=== PATIENT | female | born 1965 | race Caucasian/White ===

== ENCOUNTER → 2017-03-02 | Outpatient (CLI) | payer BC ==
[2017-03-02 07:53] LABS: BASOPHILS # (AUTO) 0.05 10*3/UL; BASOPHILS % (AUTO) 0.7 % (0-1); EOSINOPHILS # (AUTO) 0.24 10*3/UL; EOSINOPHILS % (AUTO) 3.1 % (0-8); HEMATOCRIT 41.8 % (37.0-47.0); LYMPHOCYTES # (AUTO) 2.26 10*3/uL; MEAN CORPUSCULAR HEMOGLOBIN 29.2 PG (27-31); MEAN CORPUSCULAR HGB CONC 33.5 g/dL (33-37); MEAN CORPUSCULAR VOLUME 87.3 FL (81-99); MEAN PLATELET VOLUME 9.4 FL (7.4-12.2); MONOCYTES # (AUTO) 0.64 10*3/UL (0.3-0.8); MONOCYTES % (AUTO) 8.4 % (5-15); NEUTROPHILS # (AUTO) 4.44 10*3/UL; NEUTROPHILS % (AUTO) 57.9 % (50-80); RED BLOOD COUNT 4.79 10^6/uL (4.20-5.40)
[2017-03-02 07:54] LABS: PLATELET MORPHOLOGY COMMENT NORMAL MORPHOLOGY (NORM); RBC MORPHOLOGY COMMENT NORMAL MORPHOLOGY (NORM); WBC MORPHOLOGY COMMENT NORMAL MORPHOLOGY (NORM)
[2017-03-02 08:25] LABS: BLOOD UREA NITROGEN 14 mg/dL (7-22); BUN/CREATININE RATIO 23.33 (6-20); CALCIUM 9.6 mg/dL (8.7-10.7); EST GLOMERULAR FILTRATION > 60 (>60 ml/min/1.73m(2)); SERUM ALBUMIN 4.3 g/dL (3.5-4.8)
== END ==
LOC: LAB 07:33
PROVIDERS: ATTEND Internal Medicine Gastroenterology
DX: R94.5 Abnormal results of liver function studies (principal); K75.81 Nonalcoholic steatohepatitis (NASH)
CPT/HCPCS: 36415; 80053; 82105; 85025; 85610

== ENCOUNTER 2017-04-30 18:52 | Emergency (ER) | payer BC ==
[2017-04-30] MEDS ORDERED: DEXAMETHASONE PF 10 MG/1 ML VIAL IV ONE (19:01)
[2017-04-30] MEDS ORDERED: Famotidine Inj 20 MG in Normal Saline Flush 10 ML IVP ONE (19:01)
[2017-04-30] MEDS ORDERED: diphenhydrAMINE 50 MG/1 ML VIAL IVP ONE (19:01)
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
[2017-05-01] MEDS ORDERED: Sodium Chloride 0.9% 1,000 ML PRIMARY IV ONE (02:37)
[2017-05-01 03:53] VITALS: RESP 18; TEMP 97.6
== END 2017-04-30 19:48 | disposition home or self-care (01) ==
LOC: ER 18:52
DX: T78.40XA Allergy, unspecified, initial encounter (principal); H57.8 Other specified disorders of eye and adnexa
CPT/HCPCS: 96374; 96375; 99282; 99283; J1200; J1100; J7030